=== PATIENT | female | born 1985 | race American Indian/Alaskan Native ===

== ENCOUNTER 2018-04-20 13:39 | Emergency (ER) | payer OTHER ==
[2018-04-20] MEDS ORDERED: PROVENTIL IH ONE (15:17)
[2018-04-20] MEDS ORDERED: ROBITUSSIN AC PO ONE (15:18)
[2018-04-20] MEDS ORDERED: SOLU-Medrol IM ONE (15:18)
--- NOTE | 2018-04-20 15:57 | Emergency Department Report ---
<TACHO TALAVERA - Last Filed: 04/20/18 15:53> ED General Adult HPI - General Chief complaint: Upper Respiratory Infection Stated complaint: COUGH/CHEST PAIN Time Seen by Provider: 04/20/18 14:58 Source: patient Mode of arrival: Ambulatory Limitations: No Limitations - History of Present Illness Initial comments: Patient presents to emergency department with the chief complaint of wheezing and cough since . The patient has a history of asthma and states that she's been taking TheraFlu and Loly-[place] plus at home to try to relieve her symptoms. Patient denies having a fever. Patient was chest pain, abdominal pain, or headache. - Related Data Previous Rx's Medication Instructions Recorded Last Taken Type ALBUTEROL Inhaler(NF) [VENTOLIN 2 puff IH Q4-6H PRN #1 inha 04/20/18 Unknown Rx Inhaler(NF)] Prednisone [predniSONE 10 mg 10 mg PO .TAPER #1 tab.ds.pk 04/20/18 Unknown Rx (6-Day Pack, 21 Tabs)] Allergies Allergy/AdvReac Type Severity Reaction Status Date / Time No Known Allergies Allergy Unverified 04/20/18 13:54 ED Review of Systems Comment: All other systems reviewed and negative Constitutional: denies: chills, fever Eyes: denies: eye pain, eye discharge, vision change ENT: denies: ear pain, throat pain Respiratory: shortness of breath, wheezing. denies: cough Cardiovascular: denies: chest pain, palpitations Endocrine: no symptoms reported Gastrointestinal: denies: abdominal pain, nausea, diarrhea Genitourinary: denies: urgency, dysuria, discharge Musculoskeletal: denies: back pain, joint swelling, arthralgia Skin: denies: rash, lesions Neurological: denies: headache, weakness, paresthesias Psychiatric: denies: anxiety, depression Hematological/Lymphatic: denies: easy bleeding, easy bruising ED Past Medical Hx - Past Medical History Previous Medical History?: Yes Hx Hypertension: Yes Hx Asthma: Yes - Surgical History Past Surgical History?: No - Social History Smoking Status: Never Smoker Substance Use Type: None - Medications Home Medications: Home Medications Medication Instructions Recorded Confirmed Last Taken Type ALBUTEROL Inhaler(NF) [VENTOLIN 2 puff IH Q4-6H PRN #1 inha 04/20/18 Unknown Rx Inhaler(NF)] Prednisone [predniSONE 10 mg 10 mg PO .TAPER #1 tab.ds.pk 04/20/18 Unknown Rx (6-Day Pack, 21 Tabs)] ED Physical Exam - General Limitations: No Limitations General appearance: alert, in no apparent distress - Head Head exam: Present: atraumatic, normocephalic - Eye Eye exam: Present: normal appearance, PERRL, EOMI - ENT ENT exam: Present: mucous membranes moist - Neck Neck exam: Present: normal inspection - Respiratory Respiratory exam: Present: normal lung sounds bilaterally, wheezes. Absent: respiratory distress, rales, rhonchi - Cardiovascular Cardiovascular Exam: Present: regular rate, normal rhythm. Absent: systolic murmur, diastolic murmur, rubs, gallop - GI/Abdominal GI/Abdominal exam: Present: soft, normal bowel sounds - Extremities Exam Extremities exam: Present: normal inspection - Back Exam Back exam: Present: normal inspection - Neurological Exam Neurological exam: Present: alert, oriented X3 - Psychiatric Psychiatric exam: Present: normal affect, normal mood - Skin Skin exam: Present: warm, dry, intact, normal color. Absent: rash ED Medical Decision Making - Medical Decision Making Patient states she is taking her blood pressure medications as prescribed. I discussed with the patient the need to use medications that are safe to use for colds and patient's hypertension and that they're usually annotated with a heart ED Disposition Clinical Impression: Bronchitis Disposition: [id number] TO HOME OR SELFCARE Condition: Stable Instructions: Acute Bronchitis (ED) Additional Instructions: Follow-up with a primary care doctor in 3-5 days or if symptoms worsen and continue return to emergency room as soon as possible. Prescriptions: ALBUTEROL Inhaler(NF) [VENTOLIN Inhaler(NF)] 2 puff IH Q4-6H PRN #1 inha PRN Reason: Wheezing Prednisone [predniSONE 10 mg (6-Day Pack, 21 Tabs)] 10 mg PO .TAPER #1 tab.ds.pk Referrals: PRIMARY CARE, [Primary Care Provider] - 3-5 Days MARCI OWENS MD [Staff Physician] - 3-5 Days [facility] [Outside] - 3-5 Days [facility] [Outside] - 3-5 Days Forms: Work/School Release Form(ED) <JERONIMO DURAND - Last Filed: 04/20/18 17:32> ED Review of Systems ROS: Stated complaint: COUGH/CHEST PAIN Other details as noted in HPI ED Course Vital Signs 04/20/18 04/20/18 04/20/18 13:50 16:10 16:27 Temperature 99.0 F Pulse Rate 93 H Pulse Rate [ 95 H 106 H Anterior Bilateral] Respiratory 18 Rate Respiratory 20 20 Rate [Anterior Bilateral] Blood Pressure 181/116 O2 Sat by Pulse 98 Oximetry ED Medical Decision Making - Medical Decision Making Patient was originally seen by Tacho Morales. Patient was signed out to me for post evauation after breathing treatment. Patient finished her breathing treatment. Posttreatment and there is no wheezing upon auscultation. As per Dr. Talavera, patient can be discharged if symptoms improved. Patient is discharged with albuterol and prednisone. Patient was referred to Follow-up with a primary care doctor in 3-5 days or if symptoms worsen and continue return to emergency room as soon as possible. At time of discharge, the patient does not seem toxic or ill in appearance. No acute signs of distress noted. Patient agrees to discharge treatment plan of care. No further questions noted by the patient. This chart is dictated with using [employer] Critical care attestation.: If time is entered above; I have spent that time in minutes in the direct care of this critically ill patient, excluding procedure time. ED Disposition Is pt being admited?: No Does the pt Need Aspirin: No
--- NOTE | 2018-04-20 16:43 | XRay Report ---
FINAL REPORT PROCEDURE: Chest. TECHNIQUE: Chest radiograph anteroposterior view. CPT 70423 HISTORY: Cough. COMPARISON: No prior studies are available for comparison. FINDINGS: The heart and mediastinum appear normal. The lungs are clear and well expanded. There are no pleural effusions. The soft tissues and regional skeleton are unremarkable. IMPRESSION: Normal study.
[2018-04-20 17:50] VITALS: BP 168/94
== END 2018-04-20 17:49 | disposition home or self-care (01) ==
LOC: ED 13:39
DX: J40 Bronchitis, not specified as acute or chronic (principal); I10 Essential (primary) hypertension
CPT/HCPCS: 71045; 94640; 96372; 99283; J2930